=== PATIENT | female | born 1985 | race American Indian/Alaskan Native ===

== ENCOUNTER 2017-10-23 15:08 | Inpatient (IN) | payer OTHER ==
[2017-10-23] MEDS ORDERED: ELIQUIS PO ONE (16:47)
--- NOTE | 2017-10-23 16:53 | Vascular Lab Report ---
Right Lower Extremity Venous Duplex Study: Reason for Exam: Pain and swelling of the right lower extremity. Comments on the Right: Acute deep venous thrombosis is seen in the paramedial vein in the calf.. The remaining veins visualized are freely compressible without evidence of internal echogenicity. Spontaneous and phasic flow is present proximally. Comments on the Left: A limited duplex study was done of the proximal veins of the left lower extremity. All veins visualized are freely compressible without evidence of internal echogenicity. Flow is spontaneous and phasic throughout. No evidence of acute or chronic thrombus is seen in any of the vessels visualized. Impression: Acute deep venous thrombosis of the right peroneal vein.
--- NOTE | 2017-10-23 17:04 | Emergency Department Report ---
HPI - General Chief Complaint: Extremity Problem,Nontraumatic Time Seen by Provider: 10/23/17 16:45 - HPI HPI: 32-year-old AA female presented to the emergency department with complaint of right calf pain and/or right lower extremity pain that has been going on for the past 3 days. It started swelling up this morning which is what prompted her to come in. Patient has a job where she says she does sit for long periods of time. She is a tobacco smoker and she is on control. She otherwise has not taken anything for her symptoms prior to presentation. She denies any other past medical history. She denies any rash, lesions or skin color change. ED Past Medical Hx - Past Medical History Previous Medical History?: No - Surgical History Past Surgical History?: No - Social History Smoking Status: Current Every Day Smoker Substance Use Type: None - Medications Home Medications: Home Medications Medication Instructions Recorded Confirmed Last Taken Type No Known Home Medications [No 10/24/17 10/24/17 Unknown History Reported Home Medications] ED Review of Systems ROS: Stated complaint: (R) LEG SWELLING/PAIN Other details as noted in HPI Comment: All other systems reviewed and negative Constitutional: denies: chills, fever Eyes: denies: eye pain, eye discharge, vision change ENT: denies: ear pain, throat pain Respiratory: denies: cough, shortness of breath, wheezing Cardiovascular: edema. denies: chest pain, palpitations Gastrointestinal: denies: abdominal pain, nausea, diarrhea Genitourinary: denies: urgency, dysuria, discharge Musculoskeletal: myalgia. denies: arthralgia Skin: denies: rash, lesions Neurological: denies: headache, weakness Physical Exam - Physical Exam Vital Signs: Vital Signs 10/23/17 15:32 Temperature 98.7 F Pulse Rate 105 H Respiratory 16 Rate Blood Pressure 132/79 O2 Sat by Pulse 97 Oximetry Physical Exam: GENERAL: The patient is well-developed well-nourished. HENT: Normocephalic. Atraumatic. Patient has moist mucous membranes. EYES: Extraocular motions are intact. Pupils equal reactive to light bilaterally. NECK: Supple. Trachea is midline. CHEST/LUNGS: Clear to auscultation. There is no respiratory distress noted. HEART/CARDIOVASCULAR: Regular. There is no tachycardia. There is no murmur. ABDOMEN: Abdomen is soft, nontender. Patient has normal bowel sounds. Obese habitus. SKIN: Skin is warm and dry. There is very mild nonpitting swelling to the right lower extremity when compared to the left. NEURO: The patient is awake, alert, and oriented. The patient is cooperative. The patient has no focal neurologic deficits. The patient has normal speech and gait. MUSCULOSKELETAL: Tenderness palpation to the right superior portion of the calf. There is no limitation range of motion. There is no evidence of acute injury. ED Course Vital Signs 10/23/17 15:32 Temperature 98.7 F Pulse Rate 105 H Respiratory 16 Rate Blood Pressure 132/79 O2 Sat by Pulse 97 Oximetry - Pulse Oximetry Interpretation Digit-Finger Initial Pulse Oximetry Readin O2 Sat by Pulse Oximetry: 97 Actions Taken: none Additional Comments: normal ED Medical Decision Making - Lab Data Result diagrams: 10/23/17 17:00 10/23/17 20:30 - Radiology Data Radiology results: report reviewed Right Lower Extremity Venous Duplex Study: Reason for Exam: Pain and swelling of the right lower extremity. Comments on the Right: Acute deep venous thrombosis is seen in the paramedial vein in the calf.. The remaining veins visualized are freely compressible without evidence of internal echogenicity. Spontaneous and phasic flow is present proximally. Comments on the Left: A limited duplex study was done of the proximal veins of the left lower extremity. All veins visualized are freely compressible without evidence of internal echogenicity. Flow is spontaneous and phasic throughout. No evidence of acute or chronic thrombus is seen in any of the vessels visualized. Impression: Acute deep venous thrombosis of the right peroneal vein. Transcribed By: STEVE Dictated By: ONEIDA BAUMANN MD Electronically Authenticated By: ONEIDA BAUMANN MD Signed Date/Time: 10/23/17 0966 PROCEDURE: CT ANGIO CHEST TECHNIQUE: Computerized tomographic angiography of the chest was performed after the IV injection of iodinated nonionic contrast including image processing. The image data was postprocessed using 2-dimensional multiplanar reformatted (MPR) and 3-dimensional (MIP and/or volume rendered) techniques. HISTORY: SOB, current DVT COMPARISON: No prior studies are available for comparison. FINDINGS: Heart and pericardium: No pericardial effusion or thickening. Thoracic aorta: Normal. Pulmonary vasculature: There are linear filling defects within segmental and subsegmental right upper lobe, right lower lobe, left lower lobe branches, compatible with pulmonary emboli. Lymph nodes: No enlarged thoracic lymph nodes. Lungs: No infiltrate or focal lesion is seen. Airways are patent. Pleural space: No effusion, thickening, or pneumothorax. Musculoskeletal structures: No significant abnormality. Upper abdominal structures: Limited evaluation of the liver parenchyma due to phase of contrast enhancement, however there is a possible inferior left hepatic lobe mass, measuring up to 5.5 centimeters. IMPRESSION: Bilateral pulmonary emboli. Possible left hepatic lobe mass. Recommend follow-up dedicated multiphase CT of the liver Transcribed By: GINO Dictated By: TORI PATEL M.D. Electronically Authenticated By: TORI PATEL M.D. Signed Date/Time: 10/23/172224 - Medical Decision Making Patient came in with a three-day history of right calf pain and was found to have a popliteal DVT. She was started on Eliquis but then the patient says that she has been having some intermittent shortness of breath and chest discomfort. For this reason a CT angiography of the chest was done that shows a right upper and lower, as well as a left lower, pulmonary embolism. Patient does not have any hypoxia, signs of respiratory distress. However she will be admitted to the hospital for further evaluation of these multiple embolic events. She was accepted for admission by the hospitalist, Dr. Russell. - Differential Diagnosis DVT, venous stasis, PE, pneumonia Critical Care Time: No Critical care attestation.: If time is entered above; I have spent that time in minutes in the direct care of this critically ill patient, excluding procedure time. ED Disposition Clinical Impression: Pulmonary emboli Qualifiers: Pulmonary embolism type: other Chronicity: acute Acute cor pulmonale presence: without acute cor pulmonale Qualified Code(s): I26.99 - Other pulmonary embolism without acute cor pulmonale Deep vein thrombosis (DVT) of right lower extremity Qualifiers: Affected thrombotic vein of extremity: popliteal Chronicity: acute Qualified Code(s): I82.431 - Acute embolism and thrombosis of right popliteal vein Disposition: OP ADMIT IP TO THIS HOSP Is pt being admited?: Yes Condition: Fair Time of Disposition: 00:14
[2017-10-23 17:21] LABS: Hematocrit 38.5 % (30.3-42.9); Mean Corpuscular HGB Conc 34 % (30-34); Mean Corpuscular Hemoglobin 29 pg (28-32); Mean Corpuscular Volume 87 fl (79-97); Platelet Count 160 K/mm3 (140-440); Red Blood Count 4.43 M/mm3 (3.65-5.03); Red Cell Distribution Width 13.8 % (13.2-15.2)
[2017-10-23] MEDS ORDERED: TYLENOL ONE (17:23)
[2017-10-23 17:24] LABS: INR 0.94 (0.87-1.13)
[2017-10-23 17:26] LABS: Partial Thromboplastin Time 50.7 Sec. (24.2-36.6)
[2017-10-23] MEDS ORDERED: TYLENOL PO ONE (17:27)
[2017-10-23 20:51] LABS: BUN/Creatinine Ratio 14; Blood Urea Nitrogen 10 mg/dL (7-17); Calcium 9.2 mg/dL (8.4-10.2); Hemolysis Index 2
--- NOTE | 2017-10-23 22:30 | Cat Scan Report ---
FINAL REPORT PROCEDURE: CT ANGIO CHEST TECHNIQUE: Computerized tomographic angiography of the chest was performed after the IV injection of iodinated nonionic contrast including image processing. The image data was postprocessed using 2-dimensional multiplanar reformatted (MPR) and 3-dimensional (MIP and/or volume rendered) techniques. HISTORY: SOB, current DVT COMPARISON: No prior studies are available for comparison. FINDINGS: Heart and pericardium: No pericardial effusion or thickening. Thoracic aorta: Normal. Pulmonary vasculature: There are linear filling defects within segmental and subsegmental right upper lobe, right lower lobe, left lower lobe branches, compatible with pulmonary emboli. Lymph nodes: No enlarged thoracic lymph nodes. Lungs: No infiltrate or focal lesion is seen. Airways are patent. Pleural space: No effusion, thickening, or pneumothorax. Musculoskeletal structures: No significant abnormality. Upper abdominal structures: Limited evaluation of the liver parenchyma due to phase of contrast enhancement, however there is a possible inferior left hepatic lobe mass, measuring up to 5.5 centimeters. IMPRESSION: Bilateral pulmonary emboli. Possible left hepatic lobe mass. Recommend follow-up dedicated multiphase CT of the liver
--- NOTE | 2017-10-23 23:45 | History and Physical Report ---
History of Present Illness Date of examination: 10/23/17 History of present illness: 32-year-old woman with a no medical historycomes to the emergency room complaining of chest pain located in the left chest that started more than a month ago. She described pain as a dull pain intermittent every 5 minutes, intensity 7/10, no radiation, he cannot identify exacerbating or relieving factors. Admits to shortness of breath, OCP use, and swelling of the right leg 3 days ago. No nausea vomiting, diaphoresis Review of systems Constitutional: no weight loss, chills, fever Ears, eyes, nose, mouth and throat: no nasal congestion, no nasal discharge, no sinus pressure, no vision change, no red eye. Neck: No neck pain or rigidity. Cardiovascular: no palpitations Respiratory: no cough, shortness of breath Gastrointestinal: no abdominal pain hematochezia Genitourinary : no frequency , no hematuria Musculoskeletal: no joint swelling or muscle ache Integumentary: no rash, no pruritis Neurological: no parathesias, no numbness, no focal weakness Endocrine: no cold or heat intolerance, no polyuria or polydipsia Hematologic/Lymphatic: no easy bruising, no easy bleeding, no gland swelling Allergic/Immunologic: no urticaria, no angioedema. PAST MEDICAL HISTORY: None PAST SURGICAL HISTORY: None SOCIAL HISTORY: No alcohol, no drugs, +tobacco FAMILY HISTORY: Sister With lupus and pulmonary emboli Medications and Allergies Allergies Allergy/AdvReac Type Severity Reaction Status Date / Time Penicillins Allergy Unknown Verified 10/23/17 15:36 Home Medications Medication Instructions Recorded Confirmed Last Taken Type No Known Home Medications [No 10/24/17 10/24/17 Unknown History Reported Home Medications] Exam - Physical Exam Narrative exam: Gen. appearance: Patient lying in bed, no apparent distress HEENT: Normocephalic, atraumatic, pupils equally round and reactive to light, extraocular movement intact, and no sclericterus,. No JVD or thyromegaly or nodule,neck supple, no carotid bruit ,mucous membranes moist, no exudate or erythema Heart: S1, S2, regular rate and rhythm Lungs: Clear to auscultation bilaterally, breathing comfortable Abdomen: Positive bowel sounds, non tenderess , nondistended, no organomegaly Extremity: No edema, cyanosis, clubbing Skin: No rash, nodules, warm, dry Neuro: Oriented 3, cranial nerves II-12 intact, speech is fluent, motor and sensory intact - Constitutional Vitals: Temp Pulse Resp BP Pulse Ox 98.7 F 81 15 118/69 92 10/23/17 15:32 10/23/17 20:08 10/23/17 20:08 10/23/17 21:43 10/23/17 21:35 Results - Labs CBC & Chem 7: 10/23/17 17:00 10/23/17 20:30 Labs: Abnormal lab results 10/23/17 Range/Units 17:00 APTT 50.7 H (24.2-36.6) Sec. - Imaging and Cardiology CT scan - chest: report reviewed Assessment and Plan Doppler of the lower extremity reviewed Assessment Acute pulmonary emboli secondary to OCP Acute DVT of lower extremity Plan Admit to medicine Continueeliquis monitor hemoglobin, IV morphine DVT prophalaxis
[2017-10-24] MEDS ORDERED: SODIUM CHLORIDE FLUSH SYRINGE 10 ML IV PRN (01:21)
[2017-10-24] MEDS ORDERED: TYLENOL PO PRN (01:21)
[2017-10-24] MEDS ORDERED: MORPHINE IV PRN (01:21)
[2017-10-24] MEDS ORDERED: ZOFRAN IV PRN (01:21)
[2017-10-24] MEDS ORDERED: ELIQUIS PO SCH (10:00)
[2017-10-24] MEDS: ELIQUIS PO SCH ×2 (10:41→22:07)
--- NOTE | 2017-10-24 14:19 | Progress Note ---
Assessment and Plan Assessment and plan: 32-year-old -[place] female with medical history significant for obesity presented to the emergency department for the complaints of chest pain. Patient has been using OCP. CTA showed bilateral PE. Doppler ultrasound showed right lower leg popliteal DVT. Patient is on Eliquis. Hemodynamically stable. Will monitor overnight and if continued to be stable possibel discharge with by mouth eliquis tomorrow. Obesity - counselled about weight loss, diet and exercise. History Interval history: Patient was seen and evaluated this morning, patient didn't have any difficulty with breathing. Vital signs are stable. Hospitalist Physical - Physical exam Narrative exam: Not in cardiopulmonary distress. The patient is morbidly obese. Vital signs as documented. Head exam is unremarkable. No scleral icterus . Neck is without jugular venous distension, thyromegaly, or carotid bruits. Lungs are clear to auscultation. Cardiac exam reveals regular rate and Rhythm. First and second heart sounds normal. No murmurs, rubs or gallops. Abdominal exam reveals normal bowel sounds, no masses, no organomegaly and no aortic enlargement. Extremities swelling and tenderness on the right calf area. FNP: Alert and oriented 3. No focal weakness. - Constitutional Vitals: Temp Pulse Resp BP Pulse Ox 98.5 F 89 20 147/86 98 10/24/17 08:25 10/24/17 08:25 10/24/17 08:25 10/24/17 08:25 10/24/17 09:50 Results - Labs CBC & Chem 7: 10/23/17 17:00 10/23/17 20:30 Labs: Laboratory Last Values WBC 10.0 K/mm3 (4.5-11.0) 10/23/17 17:00 RBC 4.43 M/mm3 (3.65-5.03) 10/23/17 17:00 Hgb 13.0 gm/dl (10.1-14.3) 10/23/17 17:00 Hct 38.5 % (30.3-42.9) 10/23/17 17:00 MCV 87 fl (79-97) 10/23/17 17:00 MCH 29 pg (28-32) 10/23/17 17:00 MCHC 34 % (30-34) 10/23/17 17:00 RDW 13.8 % (13.2-15.2) 10/23/17 17:00 Plt Count 160 K/mm3 (140-440) 10/23/17 17:00 PT 13.0 Sec. (12.2-14.9) 10/23/17 17:00 INR 0.94 (0.87-1.13) 10/23/17 17:00 APTT 50.7 Sec. (24.2-36.6) H 10/23/17 17:00 Sodium 142 mmol/L (137-145) 10/23/17 20:30 Potassium 4.2 mmol/L (3.6-5.0) 10/23/17 20:30 Chloride 106.8 mmol/L (98-107) 10/23/17 20:30 Carbon Dioxide 24 mmol/L (22-30) 10/23/17 20:30 Anion Gap 15 mmol/L 10/23/17 20:30 BUN 10 mg/dL (7-17) 10/23/17 20:30 Creatinine 0.7 mg/dL (0.7-1.2) 10/23/17 20:30 Estimated GFR > 60 ml/min 10/23/17 20:30 BUN/Creatinine Ratio 14 % 10/23/17 20:30 Glucose 99 mg/dL (65-100) 10/23/17 20:30 Calcium 9.2 mg/dL (8.4-10.2) 10/23/17 20:30
[2017-10-24] MEDS: SODIUM CHLORIDE FLUSH SYRINGE 10 ML IV SCH ×2 (22:10)
[2017-10-25 07:43] LABS: Basophils % (Auto) 0.5 % (0.0-1.8); Eosinophils # (Auto) 0.3 K/mm3 (0.0-0.4); Eosinophils % (Auto) 2.8 % (0.0-4.3); Hematocrit 36.9 % (30.3-42.9); Hemoglobin 12.4 gm/dl (10.1-14.3); Lymphocytes # (Auto) 2.3 K/mm3 (1.2-5.4); Mean Corpuscular HGB Conc 34 % (30-34); Mean Corpuscular Hemoglobin 29 pg (28-32); Mean Corpuscular Volume 88 fl (79-97); Monocytes # (Auto) 0.9 K/mm3 (0.0-0.8); Monocytes % (Auto) 10.5 % (0.0-7.3); Platelet Count 188 K/mm3 (140-440); Red Cell Distribution Width 13.8 % (13.2-15.2)
[2017-10-25 08:01] LABS: BUN/Creatinine Ratio 13; Blood Urea Nitrogen 8 mg/dL (7-17); Hemolysis Index 3
--- NOTE | 2017-10-25 08:36 | Discharge Summary ---
Providers - Providers Date of Admission: 10/24/17 00:06 Date of discharge: 10/25/17 Attending physician: CHANDLER HILL MD Primary care physician: FITTING SUPERVISOR Hospitalization Reason for admission: bilateral PE, DVT Condition: Stable Pertinent studies: CTA bilateral PE Venous Doppler acute DVT in the right popliteal vein Hospital course: 32-year-old -Citizen Of [place] female with medical history significant for obesity presented to the emergency department for the complaints of chest pain, right leg swelling and pain. Patient has been using OCP. CTA showed bilateral PE. Doppler ultrasound showed right lower leg popliteal DVT. Was treated with Eliquis. Patient was hemodynamically stable. Patient didn't have any breathing problem. Chest pain subsided. Swelling and pain in the right leg getting better. Patient was advised was advised to stop taking OCP and to use alternatives. Patient was given eliquis at the time of discharge. Patient advised to follow- up with her primary care physician. Disposition: TO HOME OR SELFCARE Time spent for discharge: 31 minutes - Discharge Diagnoses (1) Oral contraceptive use Status: Chronic (2) Deep vein thrombosis (DVT) of right lower extremity Status: Acute Qualifiers: Affected thrombotic vein of extremity: popliteal Chronicity: acute Qualified Code(s): I82.431 - Acute embolism and thrombosis of right popliteal vein (3) Pulmonary emboli Status: Acute Qualifiers: Pulmonary embolism type: other Chronicity: acute Acute cor pulmonale presence: without acute cor pulmonale Qualified Code(s): I26.99 - Other pulmonary embolism without acute cor pulmonale (4) Morbid obesity Status: Acute Core Measure Documentation - Palliative Care Palliative Care/ Comfort Measures: Not Applicable - Core Measures Any of the following diagnoses?: DVT/PE - VTE Discharge Requirements Deep Vein Thrombosis/Pulmonary Embolism Present on Admission: Yes Has pt received <5 days of overlap therapy or INR<2.0: Yes Anticoagulant overlap therapy prescribed at discharge: No Contraindication No Overlap Therapy order at DC: Not Indicated Exam - Physical Exam Narrative exam: Not in cardiopulmonary distress. The patient is morbidly obese. Vital signs as documented. Head exam is unremarkable. No scleral icterus . Neck is without jugular venous distension, thyromegaly, or carotid bruits. Lungs are clear to auscultation. Cardiac exam reveals regular rate and Rhythm. First and second heart sounds normal. No murmurs, rubs or gallops. Abdominal exam reveals normal bowel sounds, no masses, no organomegaly and no aortic enlargement. Extremities swelling and tenderness on the right calf area. EX ASSISTANT/PROGRAM DIRECTOR: Alert and oriented 3. No focal weakness. - Constitutional Vitals: Temp Pulse Resp BP Pulse Ox 98.7 F 75 20 136/71 95 10/25/17 05:50 10/25/17 05:50 10/25/17 05:50 10/25/17 05:50 10/25/17 05:50 Plan Activity: no restrictions Weight Bearing Status: Full Weight Bearing Diet: low fat Additional Instructions: Follow [facility]2 [facility] Follow up with: PRIMARY CARE, [Primary Care Provider] - 7 Days Forms: Discharge Signature Page Prescriptions: Acetaminophen [Acetaminophen TAB] 650 mg PO Q4H PRN #20 tablet PRN Reason: Pain MILD(1-3)/Fever >100.5/GOMEZ Apixaban [Eliquis] 10 mg PO Q12HR #74 tablet
[2017-10-25 09:01] VITALS: BP 114/56
[2017-10-25] MEDS: ELIQUIS PO SCH (10:42)
[2017-10-25] MEDS: SODIUM CHLORIDE FLUSH SYRINGE 10 ML IV SCH (10:42)
== END 2017-10-25 12:07 | disposition home or self-care (01) | DRG 299 ==
LOC: ED 15:08 → 4A 10-24 00:06
PROVIDERS: ADMIT Internal Medicine; ATTEND Internal Medicine
DX: I82.491 Acute embolism and thrombosis of other specified deep vein of right lower extremity (principal); I26.99 Other pulmonary embolism without acute cor pulmonale; Z68.42 Body mass index [BMI] 45.0-49.9, adult; E66.01 Morbid (severe) obesity due to excess calories; T38.4X5A Adverse effect of oral contraceptives, initial encounter; F17.200 Nicotine dependence, unspecified, uncomplicated; Z79.3 Long term (current) use of hormonal contraceptives; Z71.3 Dietary counseling and surveillance; Z88.0 Allergy status to penicillin; Y92.89 Other specified places as the place of occurrence of the external cause
CPT/HCPCS: 36415; 71275; 80048; 85025; 85027; 85610; 85730; 99406; Q9967